=== PATIENT | male | born 1960 | race Caucasian/White ===

== ENCOUNTER 2016-05-20 15:40 | Emergency (ER) | payer SELFPAY ==
[~2016-05-20] VITALS: Ht 185.4 cm; Wt 90.0 kg
[2016-05-20 15:42] VITALS: Ht 185.4 cm; Wt 90.0 kg
[2016-05-20] MEDS ORDERED: morphine 4 MG/ML VIAL IV STA (15:45)
[2016-05-20] MEDS ORDERED: SOD CHLORIDE 0.9% 1,000 ML IV STA (15:45)
[2016-05-20 16:10] LABS: BASOPHILS % 0.4 % (0.0-2.0); EOSINOPHILS # 0.2 10^3/ul (0.0-0.5); EOSINOPHILS % 1.3 % (0.0-7.0); HEMATOCRIT 41.7 % (42.0-52.0); LYMPHOCYTES % 23.9 % (15.0-51.0); MEAN CORPUSCULAR HGB CONC 33.7 g/dl (32.0-37.0); MEAN CORPUSCULAR VOLUME 88.9 fl (82.0-101.0); MEAN PLATELET VOLUME 8.2 fl (7.4-10.4); MONOCYTE # 0.5 10^3/ul (0.3-0.9); MONOCYTES % 3.8 % (0.0-11.0); NEUTROPHIL # 8.8 10^3/ul (1.6-7.5); NEUTROPHILS % 70.6 % (39.0-77.0); PLATELET COUNT 220 10^3/UL (140-440); RED BLOOD COUNT 4.69 10^6/ul (4.70-6.10); RED CELL DISTRIBUTION WIDTH 12.8 % (11.5-14.5); UNCORRECTED WBC 12.4 10^3/ul (4.8-10.8); WHITE BLOOD COUNT 12.4 10^3/ul (4.8-10.8)
[2016-05-20 16:14] LABS: CONDITION 1
[2016-05-20 16:16] LABS: INR 1.11; PROTIME 14.3 Sec (12.2-14.2); PT RATIO 1.1
[2016-05-20 16:23] LABS: PARTIAL THROMBOPLASTIN TIME 22.5 Sec (25.0-35.0)
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
[2016-05-20 16:27] LABS: ALBUMIN 3.6 g/dl (3.3-4.9); POTASSIUM 3.8 mmol/L (3.5-5.1)
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
[2016-05-20 16:30] LABS: BILIRUBIN,INDIRECT 0.1 mg/dl (0-1.1); BILIRUBIN,TOTAL 0.1 mg/dl (0.2-1.3); CREATININE 0.94 mg/dl (0.61-1.24); TOTAL PROTEIN 6.4 g/dl (6.1-8.1)
[2016-05-20 16:31] LABS: CALCIUM 8.4 mg/dl (8.4-10.2)
[2016-05-20] MEDS ORDERED: SOD CHLORIDE 0.9% 100 ML ONE (17:00)
[2016-05-20] MEDS ORDERED: IOHEXOL 300MG/ML 150 ML BTL ONE (17:00)
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
[2016-05-20 17:59] VITALS: BP 109/77; PULSE 83; RESP 19; TEMP 98.1
--- NOTE | 2016-05-20 18:16 | ERD ---
ER Documentation Chief Complaint Date/Time DATE: 05/20/16 TIME: 18:12 Chief Complaint syncopal episodes - fell, hit his back , left flank pain HPI This is a 55-year-old male who presents to the emergency room for evaluation of back pain and left flank pain. This patient states that he was on a 3 foot ledge, and was helping his friend load a truck when he felt dizzy and fell backwards. The patient states he hit his left back on the ground. No loss of consciousness. He is complaining of pain to the left portion of his back and describes as achy pain worse with any movement. ROS All systems reviewed and are negative except as per history of present illness. Medications Home Meds No Active Prescriptions or Reported Meds Allergies Allergies: Coded Allergies: No Known Allergy (Unverified , 05/20/16) PMhx/Soc Medical and Surgical Hx: pt denies Medical Hx, pt denies Surgical Hx Hx Alcohol Use: Yes (drink alcohol last night) Hx Substance Use: No Hx Tobacco Use: No Smoking Status: Never smoker Physical Exam Vitals Vital Signs Date Time Temp Pulse Resp B/P Pulse Ox O2 Delivery O2 Flow Rate FiO2 05/20/16 17:59 98.1 83 19 109/77 98 05/20/16 15:42 97.9 86 19 105/96 98 Physical Exam INITIAL VITAL SIGNS: Reviewed by me GENERAL: The patient is well developed, appears to be in moderate amount of pain HEENT: Pupils equal, round, and reactive to light. EOMI. There is no scleral icterus. NECK: C-spine is soft and supple, there is no meningismus. There is no cervical lymphadenopathy. LUNGS: Clear to auscultation bilaterally. There are no rales, wheezes or rhonchi. HEART: Regular rate and rhythm, no murmurs, clicks, rubs or gallops. ABDOMEN: Left-sided CVAT, visible ecchymosis noted at the left lateral rib cage approximately ribs 8 and 9, there are bowel sounds in all four quadrants. No rebound or guarding. EXTREMITIES: There is no peripheral cyanosis or edema. No focal swelling or erythema. NEUROLOGICAL: The patient moves all four extremities with 5/5 strength. Cranial nerves II - XII are intact. Normal gait. Alert and oriented to person place and time, no focal neurological deficits SKIN: There is no apparent rash or petechiae. HEME/LYMPHATIC: There is no evidence of excessive bruising or lymphedema. PSYCHIATRIC: The patient does not appear anxious or depressed. Result Diagram: 05/20/16 1555 05/20/16 1555 Results 24 hrs Laboratory Tests Test 05/20/16 15:55 Activated Partial Thromboplast Time 22.5Sec Alanine Aminotransferase (ALT/SGPT) 44IU/L Albumin 3.6g/dl Alkaline Phosphatase 53IU/L Anion Gap 12 Aspartate Amino Transf (AST/SGOT) 25IU/L Basophils # 0.010^3/ul Basophils % 0.4% Blood Urea Nitrogen 30mg/dl Calcium Level 8.4mg/dl Carbon Dioxide Level 27mmol/L Chloride Level 107mmol/L Creatinine 0.94mg/dl Direct Bilirubin 0.00mg/dl Eosinophils # 0.210^3/ul Eosinophils % 1.3% Glucose Level 112mg/dl Hematocrit 41.7% Hemoglobin 14.0g/dl INR International Normalized Ratio 1.11 Indirect Bilirubin 0.1mg/dl Lymphocytes # 3.010^3/ul Lymphocytes % 23.9% Mean Corpuscular Hemoglobin 30.0pg Mean Corpuscular Hemoglobin Concent 33.7g/dl Mean Corpuscular Volume 88.9fl Mean Platelet Volume 8.2fl Monocytes # 0.510^3/ul Monocytes % 3.8% Neutrophils # 8.810^3/ul Neutrophils % 70.6% Nucleated Red Blood Cells # 0.010^3/ul Nucleated Red Blood Cells % 0.0/100WBC Platelet Count 17910^3/UL Potassium Level 3.8mmol/L Prothrombin Time 14.3Sec Prothrombin Time Ratio 1.1 Red Blood Count 4.6910^6/ul Red Cell Distribution Width 12.8% Sodium Level 142mmol/L Total Bilirubin 0.1mg/dl Total Protein 6.4g/dl White Blood Count 12.410^3/ul Current Medications Medications (Trade) Dose Ordered Sig/Sebastian Route PRN Reason Start Time Stop Time Status Last Admin Dose Admin Sodium Chloride (NS) 1,000 ml @ 1,000 mls/hr Q1H STAT IV 05/20/16 15:45 05/20/16 16:44 DC 05/20/16 16:02 Morphine Sulfate (morphine) 4 mg ONCE STAT IV 05/20/16 15:45 05/20/16 15:47 DC 05/20/16 16:02 IV Flush 10 ml 10 ml STK-MED ONCE .ROUTE 05/20/16 17:00 05/20/16 17:01 DC 05/20/16 17:30 Sodium Chloride (NS) 100 ml @ ud STK-MED ONCE .ROUTE 05/20/16 17:00 05/20/16 17:01 DC 05/20/16 17:30 Iohexol (Omnipaque 300mg/ ml) 150 ml STK-MED ONCE .ROUTE 05/20/16 17:00 05/20/16 17:01 DC 05/20/16 17:30 Procedures/MDM CT chest abdomen pelvis with IV contrast: Nondisplaced fractures of the left L2 and L3 transverse processes. Deep subcutaneous soft tissue contusion of the left flank and para lumbar region. No evidence of acute intrathoracic injury. No evidence of solid organ or hollow viscus injury of the abdomen or pelvis X-ray Pelvis 1V Interpreted by me: Bones: No fracture Joints: No dislocation Foreign body: None Chest X-ray 1V Interpreted by me: Soft Tissue: No acute abnormalities Bones: No acute abnormalities Mediastinum/Cardiac Silhouette/Lungs: [No acute abnormalities] CT head without: No bleed, no stroke This 55-year-old male presents to the emergency room for evaluation of left- sided back pain and flank pain after falling off a ladder. When I evaluated him he appeared to be in a moderate amount of pain. Patient was given pain medication, and on my examination I did note that he had an area of ecchymosis in the left lateral rib cage. I was concerned that this patient could have a possible intraperitoneal injury given his mechanism of injury and amount of pain. A CT of the chest abdomen pelvis was obtained which does show fractures of the vertebral processes of 2 vertebrae. This patient has full range of motion in his lower extremities, full neurological function, reflexes are intact. This patient's pain is controlled with morphine. He will be discharged at this time with a referral for outpatient orthopedics follow-up. This patient CT of the head is also normal, no signs of pelvic fracture or pneumothorax. Patient feels comfortable with discharge at this time. Departure Diagnosis: Primary Impression: Vertebral fracture, closed Additional Impressions: Fall Abdominal contusion Condition: SULMA Bell DO May 20, 2016 18:15
[2016-05-20] MEDS ORDERED: IBUP800T25 PO (18:20)
[2016-05-20] MEDS ORDERED: HYDR-906 PO (18:20)
== END 2016-05-20 18:18 | disposition home or self-care (01) ==
LOC: E/R 15:40
DX: S32.029A Unspecified fracture of second lumbar vertebra, initial encounter for closed fracture (principal); R40.2252 Coma scale, best verbal response, oriented, at arrival to emergency department; S32.039A Unspecified fracture of third lumbar vertebra, initial encounter for closed fracture; R40.2362 Coma scale, best motor response, obeys commands, at arrival to emergency department; R40.2142 Coma scale, eyes open, spontaneous, at arrival to emergency department; S30.1XXA Contusion of abdominal wall, initial encounter; R51 Headache; R07.9 Chest pain, unspecified; W18.39XA Other fall on same level, initial encounter; Y92.9 Unspecified place or not applicable
CPT/HCPCS: 70450; 71010; 71260; 72170; 74177; 80048; 80076; 85025; 85610; 85730; J2270; J7030; Q9967; 96374